=== PATIENT | female | born 1995 | race Two or more races ===

== ENCOUNTER 2024-08-29 19:49 | Emergency (ER) | payer OTHER ==
[~2024-08-29] VITALS: Ht 157.5 cm; Wt 65.0 kg
[2024-08-29 19:50] VITALS: BP 175/97; PULSE 83; RESP 18; O2SAT 100
--- NOTE | 2024-08-29 21:26 | ED.PDOC ---
History of Present Illness(SKN HPI Comments 29 y.o female presents to the ED for an evaluation of a wound to her left breast. Patient has had a history over the past four months of multiple abscesses and masses to her left breast. Patient reports ongoing intermittent wounds and abscess formation, has been seen at [facility] for this issue but had no follow up. Patient was told she might need a biopsy. Patient has previous surgical scars due to reoccurring abscess formation. Wound site is draining blood. No pain, fever or chills reported at this time. Patient was hypertensive on arrival. Patient was 175/97. Patient denies any history of hypertension. Chief Complaint: Abscess Time Seen by MD: 21:08 History of Present Illness: Nurses Notes, Medications, Allergies Allergies: Coded Allergies: NO KNOWN ALLERGIES (Unverified , 08/29/24) Information Source: Patient Mode of Arrival: EMS Severity: Moderate Timing: Came on: Gradually Duration: Since onset Location: Other (left breast ) Mechanism: Preceding Wound Occurence: Indoors Object: None Condition of Object: None Associated Signs and Symptoms: Swelling Past Medical History PAST MEDICAL HISTORY: Denies Past Medical History (Other): Recent history of multiple breast abscess and masses. Surgical History: Denies all surgeries DRAFTER TOPOGRAPHICAL History: No Pertinent DRAFTER TOPOGRAPHICAL History Family History Family History: Reviewed,noncontributory to illness, No family hx of Cancer, No family hx of DM, No family hx of Heart miguel, No family hx of HTN, No family hx ofKidney miguel, No family hx of Liver miguel, No family hx of Lung miguel, No family hx of Stroke Social History Smoker: Non-Smoker Alcohol: Denies ETOH Use Drugs: Denies Drug Use Lives In: Home Constitutional: denies: chills, diaphoresis, fatigue, fever, malaise, sweats, weakness, others EENTM: denies: blurred vision, double vision, ear bleeding, ear discharge, ear drainage, ear pain, ear ringing, eye pain, eye redness, hearing loss, mouth pain, mouth swelling, nasal discharge, nose bleeding, nose congestion, nose pain, photophobia, tearing, throat pain, throat swelling, voice changes, others Respiratory: denies: cough, hemoptysis, orthopnea, SOB at rest, shortness of breath, SOB with excertion, stridor, wheezing, others Cardiovascular: denies: chest pain, dizzy spells, diaphoresis, Dyspnea on exertion, edema, irregular heart beat, left arm pain, lightheadedness, palpitations, PND, syncope, others Gastrointestinal: denies: abdomen distended, abdominal pain, blood streaked bowels, constipated, diarrhea, dysphagia, difficulty swallowing, hematemesis, melena, nausea, poor appetite, poor fluid intake, rectal bleeding, rectal pain, vomiting, others Genitourinary: denies: abnormal vagina bleeding, burning, dyspareunia, dysuria, flank pain, frequency, hematuria, incontinence, pain, , vagina discharge, urgency, others Neurological: denies: dizziness, fainting, headache, left sided numbness, left sided weakness, numbness, paresthesia, pre-existing deficit, right sided numbness, right sided weakness, seizure, speech problems, tingling, tremors, weakness, others Musculoskeletal: denies: back pain, gout, joint pain, joint swelling, muscle pain, muscle stiffness, neck pain, others Integumetry: reports: wounds (left breast abscess ); denies: bruises, change in color, change in hair/nails, dryness, laceration, lesions, lumps, rash, others Allergic/Immunocompromised: denies: Difficulty Healing, Frequent Infections, Hives, Itching, others Hematologic/Lymphatic: denies: anemia, blood clots, easy bleeding, easy bruising, swollen glands, others Endocrine: denies: excessive hunger, excessive sweating, excessive thirst, excessive urination, flushing, intolerance to cold, intolerance to heat, unexplained weight gain, unexplained weight loss, others Psychiatric: denies: anxiety, bipolar disorder, depression, hopeless, panic disorder, schizophrenia, sleepless, suicidal, others All Other Systems: Reviewed and Negative Physical Exam General Appearance: Mild Distress (Moderate distress due to left breast wound concerns.), Normal HEENT: Normal ENT Inspection, Pharynx Normal, TMs Normal Neck: Full Range of Motion, Non-Tender, Normal, Normal Inspection Respiratory: Chest Non-Tender, Lungs Clear, No Accessory Muscle Use, No Respiratory Distress, Normal Breath Sounds Cardiovascular: No Edema, No JVD, No Murmur, No Gallop, Normal Peripheral Pulses, Regular Rate/Rhythm Breast Exam: Other (Left breast reveals multiple sites of prior abscess drainage. Patient has a healed wound at the 7:00 a.m. area, 3:00 a.m. area and 330 area. Patient has a draining bloody wound noted to the lateral aspect of the 3:00 a.m. areas well as a another non abscess type wound at approximately 1:00 a.m.. No erythema, but tender to palpation.) Gastrointestinal: No Organomegaly, Non Tender, No Pulsatile Mass, Normal Bowel Sounds, Soft Genitalia: Deferred Pelvic: Deferred Rectal: Deferred Extremities: No calf tenderness, Normal capillary refill, Normal inspection, Normal range of motion, Non-tender, No pedal edema Neurologic: Alert, No Motor Deficits, Normal Affect, Normal Mood, No Sensory Deficits Cerebellar Function: Normal Reflexes: Normal Skin: Dry, Normal Color, Warm Lymphatic: No Adenopathy Was a procedure done? Was a procedure done?: No Differential Diagnosis (INTG) Differential Diagnosis: Abscess, Other (Breast mass, hypertension) X-Ray, Labs, Meds, VS Vital Signs Date Time Temp Pulse Resp B/P (MAP) Pulse Ox O2 Delivery O2 Flow Rate FiO2 08/29/24 19:50 98.0 83 18 175/97 (123) 100 X-Ray, Labs, Meds, VS Comment Spent extensive time discussing the patient's conditions that her. Advised that I do not believe she is experiencing abscess concerns as there was no definitive pus drainage, erythema nor with the patient's vital signs sales representative jewelry of an infective state. Advised the patient that she needs to continue follow up with her chief of planning and primary care provider for management of her multiple breast lesion concerns. Concerning was the patient's blood pressure and I attempted to medicate the patient, but it appears the patient has a eloped from the facility prior to receiving any medication.. Time of 1ST Reevaluation: 00:02 Reevaluation 1ST: Unchanged Consultation: PCP Patient Education/Counseling: Diagnosis, Treatment, Prognosis Family Education/Counseling: Diagnosis, Treatment, No Family Present Departure 1 Departure Time of Disposition: 00:02 Impression: Primary Impression: Breast adenoma Additional Impression: Elevated blood pressure reading Disposition: 07 LEFT AWOL/ELOPED Condition: Fair Discharged With: Self Critical Care Note Critical Care Time?: No Stability Stability form required: No I personally scribed for DICK CARBAJAL PAC ([email or web address]) on 08/29/24 at 21:26. Electronically submitted by Naima Vogel ([facility]). DICK CARBAJAL PAC Aug 29, 2024 21:26
[2024-08-29] MEDS ORDERED: cloNIDine HCL 0.1 MG TAB PO ONE (21:45)
== END 2024-08-30 00:03 | disposition left against medical advice (07) ==
LOC: ER 19:49
DX: D24.2 Benign neoplasm of left breast (principal); R03.0 Elevated blood-pressure reading, without diagnosis of hypertension